=== PATIENT | male | born 1980 | race Caucasian/White ===

== ENCOUNTER 2019-09-21 14:36 | Emergency (ER) | payer OTHER ==
[~2019-09-21] VITALS: Ht 172.7 cm; Wt 88.5 kg
[~2019-09-21 14:36] MED LIST: AMOXICILLIN500 M1 PO; FLEXERIL PO; NOHOMEMEDICATIONS; NORCO 5-325 TA1 EACH PO; PREDNISONE 10 M10 M1 PO; TOBREX5 ML OP; ULTRAM 50MG TAB50 MG PO
[2019-09-21] MEDS ORDERED: LIDOCAINE VISC100 ML SWISH&SPIT (15:08)
[2019-09-21] MEDS ORDERED: AMOXICILLIN 50500 MG PO (15:08)
[2019-09-21] MEDS ORDERED: TYLENOL WITH CO1 TA1 PO (15:08)
[2019-09-21 15:29] VITALS: BP 140/98
== END 2019-09-21 15:30 | disposition home or self-care (01) ==
LOC: M.ERS 14:36
DX: K04.7 Periapical abscess without sinus (principal); F17.210 Nicotine dependence, cigarettes, uncomplicated

== ENCOUNTER 2020-08-23 08:03 | Emergency (ER) | payer BC ==
[~2020-08-23] VITALS: Ht 177.8 cm; Wt 106.6 kg
[~2020-08-23 08:03] MED LIST changes: +AMOXICILLIN 50500 MG PO; +LIDOCAINE VISC100 ML SWISH&SPIT; +TYLENOL WITH CO1 TA1 PO
[2020-08-23 09:01] LABS: ABSOLUTE BASOPHILS 0.1 thou/uL (0.0-0.2); ABSOLUTE EOSINOPHILS 0.2 thou/uL (0.0-0.7); ABSOLUTE LYMPHOCYTES 2.5 thou/uL (0.8-5.3); ABSOLUTE MONOCYTES 0.5 thou/uL (0.0-1.2); ABSOLUTE NEUTROPHILS 3.2 thou/uL (1.6-8.1); EOSINOPHILS 2.9 %; HEMATOCRIT 46.2 % (42.0-52.0); HEMOGLOBIN 15.6 gm/dL (14.0-18.0); LYMPHOCYTES 39.4 %; MCHC 33.8 g/dL (28.0-37.0); MCV 94.7 fL (80.0-100.0); MONOCYTES 7.1 %; NUCLEATED RBCS 1 /100WBC; PLATELET COUNT* 197 thou/uL (150-400); POLYS 49.6 %; RBC 4.88 mil/uL (4.50-6.00); RDW-CV 13.4 % (10.5-14.5); WBC 6.4 thou/uL (4.0-11.0)
[2020-08-23 09:14] LABS: CALCIUM 8.3 mg/dL (8.5-10.1); CREATININE 0.8 mg/dL (0.6-1.3); POTASSIUM 4.6 mmol/L (3.5-5.1)
[2020-08-23 09:30] LABS: ALBUMIN 3.6 g/dL (3.4-5.0); TOTAL BILIRUBIN 0.2 mg/dL (<0.1-1.0); TOTAL PROTEIN 7.5 g/dL (6.4-8.2)
[2020-08-23] MEDS ORDERED: VENTOLIN HFA 1818 GM INH (11:22)
[2020-08-23] MEDS ORDERED: TESSALON PERLE100 M1 PO (11:22)
[2020-08-23 11:37] VITALS: BP 153/98
--- NOTE | 2020-08-23 13:41 | EKG ---
[place] [address] ELECTROCARDIOGRAM REPORT Name: DASH ZACARIAS Room: [facility]#: [id number] Admission: 08/23/20 Attend Phys: Discharge: Date of : 82 Date of Service: 08/23/20 0845 Report #: [id number] THIS REPORT FOR: //name// [facility] ED Test Date: 2020-08-23 Test Time: 08:45:15 Pat Name: DASH ZACARIAS Department: Room: Gender: Coffee Taster: : 1980 Requested By: Otis Hathaway Order Number: [id number] MD: Nathan Brown Measurements Intervals [place] Rate: 106 P: 55 VA: 145 QRS: 49 QRSD: 82 T: 39 QT: 310 QTc: 412 Interpretive Statements Sinus tachycardia No previous ECG available for comparison Electronically Signed On 08-23-2020 13:40:58 [employer] TECHNICIAN by Nathan Brown [email or web address] <ELECTRONICALLY SIGNED> By: Nathan Brown MD, [facility] 08/23/20 1340 0845 0845 Nathan Brown MD, FACC /EPI
== END 2020-08-23 11:38 | disposition home or self-care (01) ==
LOC: M.ERS 08:03
PROVIDERS: Emergency Medicine Emergency Medical Services
DX: J18.9 Pneumonia, unspecified organism (principal); F17.210 Nicotine dependence, cigarettes, uncomplicated; Z20.828 Contact with and (suspected) exposure to other viral communicable diseases